=== PATIENT | male | born 1955 ===

== ENCOUNTER 2018-05-16 09:18 | Day surgery (SDC) | payer SELFPAY ==
[2018-05-09 11:34] VITALS: BMI 24.6
[2018-05-16] MEDS ORDERED: Ciprofloxacin 400mg/200ml D5W 400 MG/200 ML BAG IVPB ONE (11:24)
[2018-05-16] MEDS ORDERED: Propofol 10 mg/ml Inj (20 ML) ONE ×2 (11:32→12:22)
[2018-05-16] MEDS ORDERED: Lidocaine 2% Jelly (Uro-Jet) ONE (12:01)
--- NOTE | 2018-05-16 12:47 | PCM.SURG1 ---
Surgeon's Initial Post Op Note - Surgeon's Notes Surgeon: yahaira [employer] Installer Helper: none Type of Anesthesia: General Endo Anesthesia Administered By: Pre-Operative Diagnosis: urinary retention.meatal stenosis.bph Operative Findings: bph meatal stenosis. Post-Operative Diagnosis: bph. meatal stenosis. Operation Performed: cystoscopy meatotomy urethral dilatation. Specimen/Specimens Removed: none Estimated Blood Loss: EBL {In ML}: 5 Blood Products Given: N/A Drains Used: No Drains Post-Op Condition: Good Date of Surgery/Procedure: 05/16/18 Time of Surgery/Procedure: 12:50
[2018-05-16 15:20] VITALS: RESP 18
[2018-05-16 15:40] VITALS: BP 140/78; PULSE 75; TEMP 98; O2SAT 98
--- NOTE | 2018-05-20 00:48 | OP ---
Copied To: Adolfo De La Torre MD Attending MD: Adolfo De La Torre MD PROCEDURE DATE: 05/16/2018 PREOPERATIVE DIAGNOSES: Acute urinary retention, benign prostatic hyperplasia. POSTOPERATIVE DIAGNOSES: Acute urinary retention, benign prostatic hyperplasia, meatal stenosis, Calibrate #18 [place]. OPERATIONS Cystoscopy, meatotomy, urethral dilatation till #30 Taj[place]. SURGEON: Adolfo De La Torre MD FINDINGS: Good bladder capacity, mild trabeculated bladder. No tumors or stones were observed during emptying or filling of the bladder. Ureteral orifices were normally placed and in configuration. Moderate size median lobe and large lateral lobes of the prostate gland meeting at a midline and slightly elongated prostatic urethra, membranous urethra normal, marked meatal stenosis, calibration #18 [place]. TECHNIQUE: This patient was placed in lithotomy position. External genitalia were prepped and draped in the usual sterile fashion. Xylocaine 2% jelly was instilled in the urethra. A #17 panendoscope was introduced into the bladder under direction vision. Findings as above. Unable to pass #26 resectoscope. A meatotomy was performed using a straight clamp that was placed in the inferior angle of the meatus. Mucosal bleeding was fulgurated. A #22 [place] Hatfield catheter was left indwelling. Before this, the urethra was dilated till #30 [place]. The procedure was terminated. The patient withstood the procedure well and returned to recovery room in satisfactory condition. Adolfo De La Torre MD
== END 2018-05-16 15:15 | disposition home or self-care (01) ==
LOC: C.SDS 09:18
PROVIDERS: ATTEND Urology
DX: N40.1 Benign prostatic hyperplasia with lower urinary tract symptoms (principal); R33.8 Other retention of urine; R31.0 Gross hematuria; N35.8 Other urethral stricture
CPT/HCPCS: 36415; 52290; 82948; 86850; 86900; 86920; J0744

== ENCOUNTER → 2018-05-21 21:21 | Emergency (ER) | payer SELFPAY ==
[2018-05-21 21:21] VITALS: BMI 24.6
== END | disposition left against medical advice (07) ==
LOC: C.ER 21:21
DX: Z02.89 Encounter for other administrative examinations (principal)

== ENCOUNTER 2018-05-29 09:10 | Inpatient (IN) | payer MEDICAID, SELFPAY ==
[2018-05-21 21:21] VITALS: BMI 24.6
[2018-05-29] MEDS ORDERED: Ciprofloxacin 400mg/200ml D5W 400 MG/200 ML BAG IVPB ONE (09:44)
[2018-05-29] MEDS ORDERED: Propofol 10 mg/ml Inj (20 ML) ONE (09:54)
[2018-05-29] MEDS ORDERED: Midazolam 2 MG/2 ML VIAL ONE (09:54)
[2018-05-29 10:23] LABS: INR 1.2; PROTHROMBIN TIME 12.6 SECONDS (9.7-12.2)
[2018-05-29] MEDS ORDERED: Lidocaine 2% Jelly (Uro-Jet) ONE (10:23)
--- NOTE | 2018-05-29 11:58 | PCM.SURG1 ---
Surgeon's Initial Post Op Note - Surgeon's Notes Surgeon: [facility] Director: none Type of Anesthesia: General Endo Anesthesia Administered By: Pre-Operative Diagnosis: bph. urinary retention. Operative Findings: bph.urinaryretention. Post-Operative Diagnosis: bph urinary retention Operation Performed: tur prostate gland. Specimen/Specimens Removed: prostate tissue. Estimated Blood Loss: EBL {In ML}: 15 Blood Products Given: N/A Drains Used: No Drains Post-Op Condition: Good Date of Surgery/Procedure: 05/29/18 Time of Surgery/Procedure: 11:59
[2018-05-29] MEDS ORDERED: HYDROmorphone 0.5 mg/0.5 ml ISec ONE ×2 (12:11→12:52)
[2018-05-29] MEDS ORDERED: HYDROmorphone 0.5 mg/0.5 ml ISec IVP PRN (13:24)
[2018-05-29] MEDS: Dextrose 5%/0.45% NS 1,000 ML IV SCH (14:05)
[2018-05-29 14:06] VITALS: RESP 20
[2018-05-29] MEDS: (Novolin R) Insulin Human Regular 100 units/ml vial SC SCH ×2 (17:30→23:06)
[2018-05-29] MEDS: Ciprofloxacin 400mg/200ml D5W 400 MG/200 ML BAG IVPB SCH (21:09)
[2018-05-29] MEDS: Oxycodone/Acetaminophen 5/325 mg Tab PO PRN (21:10)
[2018-05-30 01:51] VITALS: O2SAT 98
--- NOTE | 2018-05-30 03:04 | OP ---
PROCEDURE DATE: 05/29/2018 LOCATION: [facility] PREOPERATIVE DIAGNOSES: Benign prostatic hypertrophy, urinary retention. POSTOPERATIVE DIAGNOSES: Benign prostatic hypertrophy, urinary retention. OPERATION: Transurethral resection of the prostate gland. SURGEON: Adolfo De La Torre MD GROSS FINDINGS: Moderate trabeculated bladder. No tumors or stones in the bladder. Ureteral orifices normally placed and in configuration. Enlarged lateral lobes of the prostate gland meeting at the midline. A small median lobe, slightly elongated prostatic urethra, membranous and pendulous urethra normal. TECHNIQUE: This patient was placed in lithotomy position. The external genitalia were prepped and draped in the usual sterile fashion. The urethra was dilated to #30 Maries sounds, and #28 resectoscope was introduced into the bladder. The resection was started at the small median lobe and then carried down into the right lateral lobe. Bleeders were thoroughly fulgurated. Then, left lateral lobes were resected in the same manner. Bleeders were thoroughly fulgurated. At the end of the procedure, all the prostate tissue was removed. The drainage was pinkish in character. A #22 three-way Hatfield was placed over in surface into the bladder, to be connected to a continuous irrigation with normal saline. The patient withstood the procedure well and returned to recovery room in satisfactory condition. Adolfo De La Torre MD
[2018-05-30] MEDS: Dextrose 5%/0.45% NS 1,000 ML IV SCH (03:17)
[2018-05-30 08:00] VITALS: BP 129/73; PULSE 84; TEMP 97.3
[2018-05-30 08:03] LABS: HEMOGLOBIN 14.1 g/dL (12.0-18.0); MEAN CELL VOLUME 89.4 fL (80.0-94.0); MEAN CORPUSCULAR HEMOGLOBIN 30.6 pg (27.0-31.0); MEAN CORPUSCULAR HGB CONC 34.2 g/dL (33.0-37.0); MEAN PLATELET VOLUME 9.3 fL (7.2-11.7); RBC 4.61 Mil/uL (4.40-5.90); RED CELL DISTRIBUTION WIDTH 12.6 % (11.5-14.5); WHITE BLOOD COUNT 13.3 K/uL (4.8-10.8)
[2018-05-30] MEDS: (Novolin R) Insulin Human Regular 100 units/ml vial SC SCH ×2 (08:37→11:41)
[2018-05-30] MEDS ORDERED: Pneumococcal 23-Valent Vaccine IM ONE (08:58)
[2018-05-30] MEDS: Ciprofloxacin 400mg/200ml D5W 400 MG/200 ML BAG IVPB SCH (09:45)
[2018-05-30] MEDS: Oxycodone/Acetaminophen 5/325 mg Tab PO PRN (12:16)
[2018-05-31] MEDS ORDERED: Pneumococcal 23-Valent Vaccine IM ONE (12:00)
== END 2018-05-30 13:49 | disposition home or self-care (01) | DRG 337 ==
LOC: C.9S 09:10 → C.6T 12:30
PROVIDERS: ADMIT Urology; ATTEND Urology
PROC: 0VT08ZZ Resection of Prostate, Via Natural or Artificial Opening Endoscopic (ICD-10-PCS; principal; 2018-05-29 10:00)
DX: N40.1 Benign prostatic hyperplasia with lower urinary tract symptoms (principal); R33.8 Other retention of urine